=== PATIENT | female | born 1995 | race Hispanic/Latino ===

== ENCOUNTER 2017-06-03 07:53 | Outpatient (CLI) | payer BC ==
--- NOTE | 2017-06-03 10:33 | ULT ---
GALLBLADDER ULTRASOUND: History: Right upper quadrant pain after eating. FINDINGS: Real-time images of the right upper quadrant were performed. These show a normal appearing gallbladder. Technologist reports a negative ultrasound Parker's sign. The common duct is in the 5 mm range. Visualized liver parenchyma shows no focal abnormalities and measures approximately 19 cm in length. The right kidney is normal in size and not obstructed. Patient is . heart rate was obta ined of 157 beats/minute. IMPRESSION: 1. Borderline liver size. 2. No evidence of gallstones. POS: [facility]
== END 2017-06-03 07:54 | disposition home or self-care (01) ==
LOC: ULT 07:53
PROVIDERS: ATTEND Student in an Organized Health Care Education/Training Program
DX: Z34.83 Encounter for supervision of other normal pregnancy, third trimester (principal); R10.11 Right upper quadrant pain
CPT/HCPCS: 76705; 80053; 85025

== ENCOUNTER 2017-07-26 21:00 | Inpatient (IN) | payer BC ==
[~2017-07-26 21:00] MED LIST: Bupivacaine/Epinephrine 0.5% 10 ML VIAL ONE; ePHEDrine/0.9% NaCl/PF SYRINGE 50 mg/10 ml ONE
[2017-07-26] MEDS ORDERED: Diphenoxylate HCl/Atropine Tablet PO PRN (22:13)
[2017-07-26] MEDS ORDERED: Ondansetron HCl/PF 4 MG/2 ML Vial IVP PRN (22:13)
[2017-07-26] MEDS ORDERED: Carboprost 250 MCG/ML AMP IM PRN (22:13)
[2017-07-26] MEDS ORDERED: Methylergonovine 0.2 MG/ML VIAL IM PRN (22:13)
[2017-07-26] MEDS ORDERED: Misoprostol 200 MCG TAB PR PRN (22:13)
[2017-07-26] MEDS ORDERED: Penicillin G Potassium 5 MILL.UNITS in Sodium Chloride 0.9% 100 ML IVPB SCH (22:13)
[2017-07-26] MEDS ORDERED: Ibuprofen 800 MG TAB PO PRN (22:13)
[2017-07-26] MEDS ORDERED: Zolpidem Tartrate 5 MG TAB PO PRN (22:13)
[2017-07-26] MEDS ORDERED: LR / Pitocin 40 units/1000 ml 1,000 ML IV PRN (22:13)
[2017-07-26] MEDS ORDERED: Acetaminophen 500 MG TAB PO PRN (22:13)
[2017-07-26] MEDS ORDERED: HYDROcodone/Acetaminophen 5/325 mg Tablet PO PRN (22:13)
[2017-07-26] MEDS ORDERED: Penicillin G 2.5 MILL.units 2.5 MILL.UNITS in Premix Bag 1 BAG IVPB SCH (22:13)
[2017-07-26] MEDS ORDERED: Promethazine HCl 25 MG/ML VIAL IM PRN (22:13)
[2017-07-26] MEDS ORDERED: Lidocaine 1% (PF) 30 ML VIAL SC PRN (22:13)
[2017-07-26 22:36] VITALS: BMI 32.9
[2017-07-26] MEDS: Lactated Ringer's 1,000 ML IV SCH (23:09)
[2017-07-26 23:23] LABS: Hemoglobin 10.3 g/dL (12.0-16.0); Mean Corpuscular HGB CONC 33.8 g/dL (32.0-36.0); Mean Platelet Volume 7.8 fL (7.4-10.4); Platelet Count 327 thou/uL (130-400); RBC Distribution Width 15.6 % (11.5-14.5); Red Blood Cell (RBC) Count 3.81 mill/uL (4.20-5.40); White Blood Cell (WBC) Count 11.7 thou/uL (4.8-10.8)
[2017-07-26] MEDS: Misoprostol 100 MCG TAB VAG SCH (23:24)
[2017-07-27 00:01] LABS: Syphilis Antibody Nonreactive (Nonreactive); Syphilis Antibody Index 0.03 S/CO (<1.00 Non-Reactive)
[2017-07-27] MEDS ORDERED: CEFAZOLIN/Water 2 GM/20 ML SYRINGE SLOW IVP SCH (00:15)
[2017-07-27 00:31] LABS: HBSAg Index 0.25 S/CO (0-0.99); Hep B Surf Ag Non-Reactive S/CO (NonReactive)
[2017-07-27] MEDS: Lactated Ringer's 1,000 ML IV SCH ×3 (02:47→18:50)
[2017-07-27] MEDS: Misoprostol 100 MCG TAB VAG SCH ×2 (05:11→08:17)
--- NOTE | 2017-07-27 07:47 | PDOC.LDHP ---
Labor and Delivery H&P Chief complaint: scheduled induction HPI: 21yo at 40wk for postdate IOL. No complaints. s/p 2 doses cytotec overnight. Pain minimal Current gestational age (weeks): 40 Dating criteria: last menstrual period Grav: 1 Para: 0 Current complications: none Abnormal US findings: No Past Medical History: hypothyroidism Current medications: pre- vitamins, other (levothyroxine) Previous surgical history: none Allergies/Adverse Reactions: Allergies Allergy/AdvReac Type Severity Reaction Status Date / Time Penicillins Allergy Rash Verified 07/26/17 22:55 Social history: none - Physical Exam Vital signs reviewed and normal: yes General: NAD Heart: RRR Lungs: CTAB Abdomen: gravid Extremeties: no edema FHT: category 1 [place] contractions every: 3 min - Vaginal Exam cm dilated: 3 Effacement: 50% Station: -3 (arom clear) - OB Labs RH: positive Antibody Screen: negative HIV: negative RPR: negative HEPSAg: negative 1 hour GCT: negative GBS: positive Rubella: immune - Assessment L&D Assessment: medically indicated induction - Plan Plan: admit to L&D, labor augmentation if indicated, GBS antibiotic prophylaxis , informed consent obtained, anesthesia consult for pain management
[2017-07-27] MEDS: LR 500 ML/Oxytocin 10 units 500 ML IV SCH (08:15)
[2017-07-27] MEDS ORDERED: DISCONTINUE ALL PREVIOUS NARCOTICS FS SCH (12:45)
[2017-07-27] MEDS: Bupivacaine 0.5% 20 ML, fentaNYL Citrate/PF 400 MCG in Sodium Chloride 0.9% 72 ML EPIDURAL SCH (18:26)
[2017-07-27] MEDS ORDERED: Acetaminophen 325 MG TAB PO PRN (18:33)
[2017-07-27] MEDS ORDERED: Ondansetron HCl/PF 4 MG/2 ML Vial IVP PRN (18:33)
[2017-07-27] MEDS ORDERED: diphenhydrAMINE 50 MG/ML VIAL IVP PRN (18:33)
[2017-07-27] MEDS ORDERED: ePHEDrine/0.9% NaCl/PF SYRINGE 50 mg/10 ml SLOW IVP PRN (18:33)
[2017-07-27] MEDS ORDERED: Eucerin (Mineral Oil/Petrolatum,White) 30 gm Jar TOP PRN (18:33)
[2017-07-27] MEDS ORDERED: Promethazine HCl 25 MG/ML VIAL IM PRN (18:33)
[2017-07-27] MEDS ORDERED: Naloxone HCl 0.4 mg/ml Vial IVP PRN ×2 (18:33)
[2017-07-27] MEDS ORDERED: Lactated Ringer's 500 ML IV PRN (18:33)
[2017-07-27] MEDS ORDERED: Communication Order-Pharmacy FS SCH (18:45)
[2017-07-27] MEDS ORDERED: Fentanyl 4mcg/Marcaine 0.1% Cassette 100 ML EPIDURAL SCH (18:45)
[2017-07-28] MEDS: Bupivacaine 0.5% 20 ML, fentaNYL Citrate/PF 400 MCG in Sodium Chloride 0.9% 72 ML EPIDURAL SCH (01:27)
[2017-07-28] MEDS: Lactated Ringer's 1,000 ML IV SCH ×2 (02:45→03:48)
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
[2017-07-28] MEDS ORDERED: Bisacodyl 10 MG SUPP PR PRN (05:36)
[2017-07-28] MEDS ORDERED: diphenhydrAMINE 25 MG CAP PO PRN (05:36)
[2017-07-28] MEDS ORDERED: Preparation H Ointment 28 GM TUBE PR PRN (05:36)
[2017-07-28] MEDS ORDERED: Milk Of Magnesia 30 ML UDCUP PO PRN (05:36)
[2017-07-28] MEDS ORDERED: Lanolin Ointment 7 GM TUBE TOP PRN (05:36)
[2017-07-28] MEDS ORDERED: Ondansetron HCl/PF 4 MG/2 ML Vial IVP PRN (05:36)
[2017-07-28] MEDS ORDERED: Benzocaine/Menthol 20-0.5% 60 ML CAN TOP PRN (05:36)
[2017-07-28] MEDS ORDERED: HYDROcodone/Acetaminophen 5/325 mg Tablet PO PRN ×2 (05:36)
[2017-07-28] MEDS ORDERED: LR / Pitocin 40 units/1000 ml 1,000 ML IV SCH (05:36)
[2017-07-28] MEDS: Levothyroxine Sodium 25 MCG TAB PO SCH (06:02)
[2017-07-28] MEDS: Ibuprofen 800 MG TAB PO SCH ×3 (06:02→21:03)
[2017-07-28] MEDS: LR 500 ML/Oxytocin 10 units 500 ML IV SCH (08:11)
[2017-07-28] MEDS: Ferrous Sulfate 325 MG TAB PO SCH ×2 (08:11→16:02)
[2017-07-28] MEDS: Prenatal Vitamin 1 TAB PO SCH (08:20)
[2017-07-28] MEDS: Docusate Calcium (SURFAK) 240 MG CAP PO SCH ×2 (08:20→21:02)
--- NOTE | 2017-07-28 08:45 | PDOC.PP ---
Post Progress Note Post Day #: 0 PO intake tolerated: yes Flatus: no Ambulation: no Vital Signs (12 hours) Temp Pulse Resp BP 07/28/17 08:01 98.3 F 88 16 105/56 L 07/28/17 07:59 98.0 F 85 20 07/28/17 06:18 98.0 F 85 20 118/62 07/28/17 05:36 98.6 F 70 18 07/28/17 05:20 98.5 F 75 20 114/64 Weight Weight 223 lb - Physical Examination General: NAD Cardiovascular: RRR Respiratory: non-labored breathing Abdominal: no distention, appropriately TTP Fundus firm & at: umb Psychiatric: normal affect Result Diagrams: 07/26/17 22:58 Additional Labs: Post Labs Blood Type O POSITIVE 07/26/17 22:58 Hep Bs Antigen Non-Reactive S/CO (NonReactive) 07/26/17 22:58 (1) Vaginal delivery Code(s): O80 - ENCOUNTER FOR FULL-TERM UNCOMPLICATED DELIVERY Status: Acute - Assessment/Plan VSSAF Doing well, routine advances Bleeding appropriate Cont PP care
[2017-07-28] MEDS ORDERED: Adacel (T-DAP) 0.5 ML VIAL IM ONE (09:00)
[2017-07-29 05:25] LABS: Hemoglobin 8.3 g/dL (12.0-16.0); Mean Corpuscular HGB CONC 33.1 g/dL (32.0-36.0); Mean Corpuscular Volume 81.5 fl (81.0-99.0); Mean Platelet Volume 7.7 fL (7.4-10.4); Platelet Count 265 thou/uL (130-400); Red Blood Cell (RBC) Count 3.09 mill/uL (4.20-5.40); White Blood Cell (WBC) Count 11.3 thou/uL (4.8-10.8)
[2017-07-29] MEDS: Levothyroxine Sodium 25 MCG TAB PO SCH (05:52)
[2017-07-29] MEDS: Ibuprofen 800 MG TAB PO SCH ×3 (05:52→21:45)
--- NOTE | 2017-07-29 08:28 | PDOC.PP ---
Post Progress Note Post Day #: 1 PO intake tolerated: yes Flatus: yes Ambulation: yes Vital Signs (12 hours) Temp Pulse Resp BP Pulse Ox 07/29/17 00:45 97.7 F 63 20 102/59 L 07/28/17 21:00 98.2 F 65 18 107/61 97 Weight Weight 223 lb - Physical Examination General: NAD Cardiovascular: RRR Respiratory: non-labored breathing Abdominal: no distention Fundus firm & at: umb-2 Skin: no rash Neurological: no gross focal deficits Psychiatric: normal affect Result Diagrams: 07/29/17 05:06 Additional Labs: Post Labs Blood Type O POSITIVE 07/26/17 22:58 Hep Bs Antigen Non-Reactive S/CO (NonReactive) 07/26/17 22:58 (1) Vaginal delivery Code(s): O80 - ENCOUNTER FOR FULL-TERM UNCOMPLICATED DELIVERY Status: Acute - Assessment/Plan PPD1 s/p TSVD VSSAF Hgb 8.3 acute blood loss anemia, asx. Cont Iron on DC. Met all milestones, Rh pos RImm DC home FU 6wk
[2017-07-29] MEDS: Ferrous Sulfate 325 MG TAB PO SCH ×2 (09:22→17:26)
[2017-07-29] MEDS: Prenatal Vitamin 1 TAB PO SCH (09:22)
[2017-07-29] MEDS: Docusate Calcium (SURFAK) 240 MG CAP PO SCH ×2 (09:22→21:47)
[2017-07-30] MEDS: Ibuprofen 800 MG TAB PO SCH ×2 (06:25→13:51)
[2017-07-30] MEDS: Levothyroxine Sodium 25 MCG TAB PO SCH (06:25)
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
[2017-07-30] MEDS: Prenatal Vitamin 1 TAB PO SCH (09:13)
[2017-07-30] MEDS: Docusate Calcium (SURFAK) 240 MG CAP PO SCH (09:13)
[2017-07-30] MEDS: Ferrous Sulfate 325 MG TAB PO SCH ×2 (09:13→17:35)
[2017-07-30] MEDS ORDERED: Measles/Mumps/Rubella 10 MCG/0.5 ML VIAL SC ONE (18:00)
[2017-07-30 20:34] VITALS: BP 124/65; TEMP 98
== END 2017-07-30 20:10 | disposition home or self-care (01) | DRG 775 ==
LOC: L&D 21:39 → 3SW 07-28 05:18
PROVIDERS: ADMIT Student in an Organized Health Care Education/Training Program; ATTEND Student in an Organized Health Care Education/Training Program
PROC: 0HQ9XZZ Repair Perineum Skin, External Approach (ICD-10-PCS; principal; 2017-07-28)
PROC: 10E0XZZ Delivery of Products of Conception, External Approach (ICD-10-PCS; 2017-07-28)
PROC: 3E0134Z Introduction of Serum, Toxoid and Vaccine into Subcutaneous Tissue, Percutaneous Approach (ICD-10-PCS; 2017-07-30)
DX: O48.0 Post-term pregnancy (principal); D62 Acute posthemorrhagic anemia; O62.2 Other uterine inertia; Z3A.40 40 weeks gestation of pregnancy; O70.0 First degree perineal laceration during delivery; O99.824 Streptococcus B carrier state complicating childbirth; Z37.0 Single live birth; O90.81 Anemia of the puerperium; Z23 Encounter for immunization
CPT/HCPCS: 36415; 51702; 85027; 86780; 87340; 90707; J0595; J0690; J2001; J2550; J3010; J3490; J7050; J7120

== ENCOUNTER 2020-01-05 23:52 | Emergency (ER) | payer BC ==
[2020-01-06] MEDS ORDERED: Fentanyl 100 MCG/2 ML VIAL ONE (00:03)
[2020-01-06] MEDS ORDERED: Boostrix 0.5 ML VIAL ONE (00:05)
[2020-01-06 00:17] LABS: #Basophils 0.1 thou/uL (0.0-0.2); #Lymphocytes 4.7 thou/uL (1.20-3.40); #Monocytes 0.7 thou/uL (0.11-0.59); #Neutrophils 7.6 thou/uL (1.40-6.50); %Basophils 0.7 % (0.0-1.0); %Lymphocytes 33.5 % (21.0-51.0); %Neutrophils 53.9 % (42.0-75.0); Hemoglobin 13.5 g/dL (12.0-16.0); Mean Corpuscular HGB CONC 34.4 g/dL (32.0-36.0); Mean Corpuscular Hemoglobin 30.2 pg (27.0-31.0); Mean Corpuscular Volume 87.7 fL (78.0-98.0); Mean Platelet Volume 7.5 fL (7.4-10.4); Platelet Count 305 thou/uL (130-400); RBC Distribution Width 12.5 % (11.5-14.5); Red Blood Cell (RBC) Count 4.47 mill/uL (4.20-5.40); White Blood Cell (WBC) Count 14.1 thou/uL (4.8-10.8)
[2020-01-06 00:23] LABS: INR-International Normal Ratio 1.1; PTT 25.3 sec (22.9-36.1); Prothrombin Time 14.2 sec (12.0-14.7)
[2020-01-06 00:37] LABS: ALT (SGPT) 16 U/L (8-55); AST (SGOT) 20 U/L (5-34); Albumin 4.2 g/dL (3.5-5.0); Alkaline Phosphatase 56 U/L (40-110); Anion Gap 17 mmol/L (10-20); BUN (Urea Nitrogen) 10 mg/dL (7.0-18.7); Bilirubin, Total 0.3 mg/dL (0.2-1.2); CK (CPK) 107 U/L (29-168); Calc. Creatinine Clearance 0 mL/min (70-130); Calcium 8.3 mg/dL (7.8-10.44); Carbon Dioxide 15 mmol/L (22-29); Chloride 112 mmol/L (98-107); Estimated GFR-MDRD Greater than 90; Glucose 142 mg/dL (70-105); Potassium 4.2 mmol/L (3.5-5.1); Protein, Total 7.2 g/dL (6.0-8.3); Sodium 140 mmol/L (136-145)
[2020-01-06] MEDS ORDERED: Lidocaine 1% (PF) 30 ML VIAL ONE (01:00)
[2020-01-06] MEDS ORDERED: HYDROcodone/Acetaminophen 5/325 mg Tablet ONE (03:16)
[2020-01-06] MEDS ORDERED: Bacitracin 1 PK ONE (03:17)
[2020-01-06] MEDS ORDERED: Ondansetron ODT 4 MG TAB ONE (03:47)
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
== END 2020-01-06 03:49 | disposition home or self-care (01) ==
LOC: ERS 23:52
DX: S81.812A Laceration without foreign body, left lower leg, initial encounter (principal); S00.03XA Contusion of scalp, initial encounter; S40.212A Abrasion of left shoulder, initial encounter; S70.312A Abrasion, left thigh, initial encounter; V49.50XA Passenger injured in collision with unspecified motor vehicles in traffic accident, initial encounter
CPT/HCPCS: 12004; 70450; 70486; 72125; 80053; 82550; 85025; 85610; 85730; 90471; 90715; 96361; 96374; G0390; J2001; J3010; Q0162